=== PATIENT | male | born 1985 | race Caucasian/White ===

== ENCOUNTER 2021-09-23 18:57 | Inpatient (IN) | payer MEDICAID ==
[~2021-09-23] VITALS: Ht 170.2 cm; Wt 72.6 kg
--- NOTE | 2021-09-23 19:10 | NUR ---
Patient BIB [facility] from his trailer, for fentanyl/meth overdose, patient was given 4 mg Narcan nasally and 2 mg Narcan IV. Patient is spitting blood and states he can't breath.
--- NOTE | 2021-09-23 19:10 | NUR ---
Pt states his father, Flavio, cellphone number , and his girlfriend's cellphone .
--- NOTE | 2021-09-23 19:15 | NUR ---
RT at bedside.
--- NOTE | 2021-09-23 19:20 | NUR ---
Given 20 Etomidate
--- NOTE | 2021-09-23 19:21 | NUR ---
Given 100 succinylcholine
--- NOTE | 2021-09-23 19:25 | NUR ---
Pt intubated by Dr. Kee
[2021-09-23] MEDS ORDERED: PROPOFOL 100 ML ONE ×2 (19:26→23:31)
[2021-09-23] MEDS ORDERED: ETOMIDATE 20 MG/10 ML VIAL IV ONE (19:30)
[2021-09-23] MEDS ORDERED: SUCCINYLCHOLINE CHLORIDE 200 MG/10 ML VIAL IV ONE (19:30)
[2021-09-23] MEDS ORDERED: FUROSEMIDE 20 MG/2 ML VIAL IVP ONE (19:30)
--- NOTE | 2021-09-23 19:30 | NUR ---
Intubated 7.5 LL 23cm, hooked to MV with the settings of RR18, TV 550, PEEP 8, FIO2 100%. Addendum: 09/24/21 at 0007 by LYNN Intubated by EMILEE Kee.
[2021-09-23 19:56] LABS: CARBON DIOXIDE 26 mmol/L (21-32); CHLORIDE 101 mmol/L (98-107); CREATININE 1.4 mg/dL (0.6-1.3); POTASSIUM 3.6 mmol/L (3.5-5.1); UREA NITROGEN, BLOOD 12 mg/dL (7-18)
[2021-09-23 19:58] LABS: HEMATOCRIT 60.5 % (36.7-47.1); MEAN CORPUSCULAR HEMOGLOBIN 29.4 uug (23.8-33.4); MEAN CORPUSCULAR VOLUME 88.7 fL (73.0-96.2); PLATELET COUNT (AUTO) 186 K/uL (152-348)
[2021-09-23 20:03] LABS: GLUCOSE 302 mg/dL (74-106)
[2021-09-23 20:09] LABS: ALANINE AMINOTRANSFERASE 28 U/L (16-63); ALKALINE PHOSPHATASE 146 U/L (50-136); ASPARTATE AMINOTRANSFERASE 41 U/L (15-37); BILIRUBIN,DIRECT < 0.1 mg/dL (0.0-0.2); BILIRUBIN,TOTAL 0.6 mg/dL (0.2-1.0); TOTAL PROTEIN, SERUM 7.7 g/dL (6.4-8.2)
--- NOTE | 2021-09-23 20:20 | NUR ---
Urine sent to lab.
[2021-09-23] MEDS ORDERED: FUROSEMIDE 40 MG/4 ML VIAL ONE (20:27)
[2021-09-23 20:32] LABS: ABG BASE EXCESS -8.7 mmol/L; ABG HCO3 19.5 mmol/L; ABG PCO2 49.3 mmHg (35.0-45.0); ABG PH 7.214 (7.350-7.450); ABG PO2 75.5 mmHg (75.0-100.0); ABG SITE LEFT FEMORAL; ABG TOTAL HEMOGLOBIN 20.5 G/dL (13.5-18.0); COHb 0.3 % (0.5-1.5); MetHb 0.7 % (0.0-1.5); O2Hb 91.7 % (94.0-97.0); VENT MODE VENT - A/C; VT, ABG 550 mL
[2021-09-23] MEDS ORDERED: IV NS 1000 ML 1,000 ML IV ONE (20:45)
--- NOTE | 2021-09-23 20:55 | NUR ---
Called [facility] to page Aleena Parekh NP.
--- NOTE | 2021-09-23 21:00 | NUR ---
Covid and MRSA swab done and sent to lab.
[2021-09-23] MEDS ORDERED: PANTOPRAZOLE SODIUM IV 40 MG in IV DEXTROSE 5% 100 ML IV SCH (21:15)
[2021-09-23] MEDS ORDERED: ONDANSETRON 4 MG/2 ML VIAL IV PRN (21:15)
[2021-09-23] MEDS ORDERED: MAGNESIUM HYDROXIDE 30 ML LIQUID UDC PO PRN (21:15)
[2021-09-23] MEDS ORDERED: ACETAMINOPHEN 325 MG TABLET PO PRN (21:15)
[2021-09-23] MEDS: IV NS 1000 ML 1,000 ML IV PRN (21:24)
--- NOTE | 2021-09-23 21:30 | NUR ---
VIKTOR Parekh at bedside.
[2021-09-23] MEDS ORDERED: PANTOPRAZOLE SODIUM 40 MG VIAL ONE (21:47)
--- NOTE | 2021-09-23 21:57 | NUR ---
OG tube inserted c/o JAC Luis. Xray done c/o tech.
[2021-09-23] MEDS ORDERED: PIPERACILLIN SODIUM/TAZOBACTAM 3.375 G in IV DEXTROSE 5% 50 ML IV SCH (22:00)
--- NOTE | 2021-09-23 22:00 | NUR ---
Attempted to insert NGT but patient got extremely agitated, sat up in bed, trying to pull ETT. Propofol drip titrated for adequate sedation. OGT inserted instead; with small amounts of bloody drainage.
[2021-09-23] MEDS ORDERED: PIPERACILLIN/TAZOBACTAM/D5W 50 ML IV ONE (22:30)
[2021-09-23] MEDS: PIPERACILLIN SODIUM/TAZOBACTAM 3.375 G in IV DEXTROSE 5% 50 ML IV SCH (22:38)
[2021-09-23] MEDS: PROPOFOL 100 ML IV PRN ×2 (22:40→23:41)
[2021-09-23 23:00] VITALS: BP 87/47
[2021-09-23] MEDS: HEPARIN SODIUM,PORCINE 5,000 UNITS/ML VIAL SQ SCH (23:08)
[2021-09-23 23:15] VITALS: BP 80/52
[2021-09-23 23:30] VITALS: BP 86/55
[2021-09-23] MEDS ORDERED: PANTOPRAZOLE SODIUM 40 MG VIAL IV ONE (23:30)
[2021-09-23 23:45] VITALS: BP 88/52
[2021-09-24] VITALS (72 sets, daily range): BP systolic 76–153; BP diastolic 50–93
[2021-09-24] MEDS ORDERED: PHENYLEPHRINE 10 MG/1 ML VIAL ONE (00:09)
[2021-09-24] MEDS: IV NS 1000 ML 1,000 ML IV PRN (00:13)
[2021-09-24] MEDS: PHENYLEPHRINE IV 50 MG in IV NORMAL SALINE 245 ML IV PRN ×2 (00:14→00:17)
--- NOTE | 2021-09-24 00:17 | NUR ---
Hypotensive, BPs in the 70's systole. Neosynephrine drip started. Addendum: 09/24/21 at 0235 by MONICA MCFARLANE RN Amended: Links added.
--- NOTE | 2021-09-24 01:30 | NUR ---
Transferred to a hospital bed. Patient to stay in ER room as CCU patient due to staffing issue. Bath given. Skin care provided. Patient mildly agitated during transfer and care. Propofol drip remains at 50 mcg/kg/min.
[2021-09-24 02:07] LABS: HEMATOCRIT 54.8 % (36.7-47.1); MEAN CORPUSCULAR HEMOGLOBIN 29.2 uug (23.8-33.4); MEAN CORPUSCULAR VOLUME 87.5 fL (73.0-96.2); PLATELET COUNT (AUTO) 242 K/uL (152-348)
[2021-09-24 02:09] LABS: *AMPHETAMINE, URINE POSITIVE (NEGATIVE); *CANNABINOID, URINE NEGATIVE (NEGATIVE); *COCCAINE, URINE NEGATIVE (NEGATIVE); *OPIATE, URINE NEGATIVE (NEGATIVE); *PHENCYCLIDINE SCREEN,URINE NEGATIVE (NEGATIVE)
--- NOTE | 2021-09-24 02:30 | NUR ---
RT CALLED ABOUT 19:20 IN ER, PT ON MILLIE, ON 100% NRB MASK, SITTING UP, IN RESP. DISTRESS, HR 145, LABORED BREATHING, POOR OXYGENATION, PT THEN SEDATED AND INTUBATED BY DR RIGGINS, WITH 7.5 ET/TUBE IN PLACE LIP LINE 23CM,WITH ANCHOR FAST IN PLACE , PT WITH A LOT OF PUL. EDEMA FROTHY BLOODY TINGE SECRETIONS, CHANGE HME SEVERAL TIMES, SUCTION MOUTH, ALL VENT ALARMS GOD, WITH ABG DONE, REWULTS SHOWN TO ER DOCTOR, PT ON A/C 18, VT 550ML, 100%, PEEP8 Addendum: 09/24/21 at 0234 by BRITNI ROCK RT Amended: Links added. Addendum: 09/24/21 at 0236 by BRITNI ROCK RT PT WITH PUL. EDEMA, STILL CHANGE HME, AND LAVAGE WITH NS. CHECK Q2 HOURS; , ABG ORDER FOR 06:00. D SHWETA SONI
--- NOTE | 2021-09-24 03:01 | NUR ---
Spoke with Jose Eduardo Lindo NP re: troponin 257 with new orders to do troponin 6AM and cardio consult. Noted and carried out.
[2021-09-24] MEDS ORDERED: PROPOFOL 100 ML ONE ×2 (03:13→22:32)
[2021-09-24] MEDS: PROPOFOL 100 ML IV PRN ×7 (04:37→22:34)
[2021-09-24] MEDS: PIPERACILLIN SODIUM/TAZOBACTAM 3.375 G in IV DEXTROSE 5% 50 ML IV SCH (05:28)
[2021-09-24 06:06] LABS: *BILIRUBIN,URIN NEGATIVE (NEGATIVE); *BLOOD, URINE NEGATIVE (NEGATIVE); *COLOR,URINE YELLOW (YELLOW); *KETONES,URINE 1+ (NEGATIVE); *UROBILINOGEN,URINE 0.2 E.U./dl (NORMAL); LEUKOCYTE ESTERASE ,URINE NEGATIVE (NEGATIVE); NITRITE, URINE NEGATIVE (NEGATIVE); PH,URINE 7.5 (5.0-8.0); UGLUCOSE NEGATIVE (NEGATIVE)
[2021-09-24 06:08] LABS: ABG BASE EXCESS -4.2 mmol/L; ABG HCO3 22.2 mmol/L; ABG PCO2 45.4 mmHg (35.0-45.0); ABG PH 7.308 (7.350-7.450); ABG PO2 231.9 mmHg (75.0-100.0); ABG SITE LEFT FEMORAL; ABG TOTAL HEMOGLOBIN 18.3 G/dL (13.5-18.0); COHb 0.3 % (0.5-1.5); MetHb 0.3 % (0.0-1.5); O2Hb 98.7 % (94.0-97.0); VENT MODE VENT - A/C; VT, ABG 550 mL
[2021-09-24 06:11] LABS: *CLARITY,URINE HAZY (CLEAR)
--- NOTE | 2021-09-24 06:16 | NUR ---
Results of ABGs relayed to Jose Eduardo Lindo, informed of changes made by RT as per Dr. Kee. Okayed changes. FIO2 down to 70% and PEEP=5 cm.
[2021-09-24 06:18] LABS: BACTERIA,URINE NONE SEEN /HPF (NONE SEEN); RBC,URINE NONE SEEN /HPF (0-3); SQUAMOUS EPITHELIAL CELL,UR FEW /HPF (NONE SEEN); URINE AMORPHOUS PHOSPHATES MANY /HPF; WBC,URINE 0-3 /HPF (0-3)
[2021-09-24 06:20] LABS: PHOSPHOROUS 2.3 mg/dL (2.5-4.9)
--- NOTE | 2021-09-24 06:54 | NUR ---
Current vent settings: AC=18, FIO2=70%, PEEP= 5 cm and XG=323wb. O2 sats maintaining above 97%. Remains on Neosynephrine drip for BP support; titrated down to 0.8 mcg/kg/min and Propofol drip at 50 mcg/kg/min.
--- NOTE | 2021-09-24 07:00 | NUR ---
Received pt. on ventilator 7.,23LL A/C 18, tv 550, Peep +5 and 70% FIO2. no respiratory distress noted. saturation of 99% with oral care and small bloody sputum noted. afebrile. Cardiac-lobato on ST low upper 120's. sbp maintained above 90 neosinephrine running at 0.8mcg/kg/min = 18.66/hr. Neuro-lobato adequately sedated propofol running at 50mcg/kg/min, with gag&cough reflex present, SUZY. GI-lobato OG in place placement confirmed by auscultation. Hernandez to gravity with clear charla output. IV line present and patent infusing IVF. No skin break-down. Will continue with care plan.
[2021-09-24 07:16] LABS: HEMATOCRIT 52.5 % (36.7-47.1); MEAN CORPUSCULAR HEMOGLOBIN 29.3 uug (23.8-33.4); MEAN CORPUSCULAR VOLUME 88.1 fL (73.0-96.2); PLATELET COUNT (AUTO) 220 K/uL (152-348)
[2021-09-24 07:19] LABS: CREATININE 1.6 mg/dL (0.6-1.3); POTASSIUM 5.1 mmol/L (3.5-5.1)
[2021-09-24 07:22] LABS: MAGNESIUM 1.2 mg/dL (1.8-2.4)
[2021-09-24] MEDS ORDERED: PANTOPRAZOLE SODIUM 40 MG VIAL ONE (08:18)
[2021-09-24] MEDS ORDERED: HEPARIN SODIUM,PORCINE 5,000 UNITS/ML VIAL ONE ×2 (08:18→20:33)
[2021-09-24] MEDS: PANTOPRAZOLE SODIUM 40 MG VIAL IV SCH (08:21)
[2021-09-24] MEDS: VANCOMYCIN IV 1,250 MG in IV DEXTROSE 5% 250 ML IV SCH (08:21)
[2021-09-24] MEDS: HEPARIN SODIUM,PORCINE 5,000 UNITS/ML VIAL SQ SCH ×2 (08:22→20:37)
[2021-09-24] MEDS ORDERED: PHENYLEPHRINE IV 50 MG in IV NORMAL SALINE 245 ML IV PRN (08:30)
--- NOTE | 2021-09-24 08:47 | NUR ---
Patient seen by attending DNP. Iglesia Sexton report given.
[2021-09-24] MEDS ORDERED: ACETAMINOPHEN 325 MG TABLET ONE (10:19)
[2021-09-24] MEDS: MAGNESIUM SULFATE/D5W 100 ML IV SCH ×2 (10:23→12:03)
--- NOTE | 2021-09-24 10:29 | NUR ---
RT at bedside TV changed to 600 and FIO2 down to 50% as ordered by NAHEED Parekh.
[2021-09-24] MEDS ORDERED: IV NS 1000 ML 1,000 ML IV ONE (10:30)
--- NOTE | 2021-09-24 10:45 | NUR ---
Picc line Ju Gil in insertion in progress. At this time pt. became restless agitated slamming his hand agains bed and attempting to sit. As requested by MsUlysses Louise for adequate sedation during procedure propofol increased to 65mcg/kg/min/.
[2021-09-24] MEDS ORDERED: SUCCINYLCHOLINE CHLORIDE 200 MG/10 ML VIAL IV ONE (10:46)
[2021-09-24] MEDS ORDERED: ETOMIDATE 20 MG/10 ML VIAL IV ONE (10:46)
--- NOTE | 2021-09-24 11:10 | NUR ---
Procedure completed and chest Xray shot at this time patient adequately sedated. As per PICC line R.N. line ok to be used.
[2021-09-24] MEDS ORDERED: PROPOFOL 1,000 MG/100 ML BOTTLE ONE ×3 (13:05→18:49)
--- NOTE | 2021-09-24 13:06 | NUR ---
Patient seen by sports physical therapist Dr. Zelaya. Orders received and implemented.
[2021-09-24] MEDS ORDERED: FUROSEMIDE 20 MG/2 ML VIAL IV ONE (13:30)
[2021-09-24] MEDS: PIPERACILLIN SODIUM/TAZOBACTAM 3.375 G in IV DEXTROSE 5% 100 ML IV SCH ×2 (13:42→22:03)
[2021-09-24] MEDS ORDERED: FUROSEMIDE 20 MG/2 ML VIAL ONE (13:46)
--- NOTE | 2021-09-24 15:25 | NUR ---
Propofol running at 70 mcg/kg/min. neosynephrine running a 0.1mcg/min. patient noted to be in sinus tachycardia in the 113. pt. was preciously in low 100's. and noted to be more agitated especially when repositioned. orders received.
[2021-09-24] MEDS ORDERED: LORAZEPAM 2 MG/1 ML VIAL ONE ×2 (15:32→21:43)
[2021-09-24] MEDS: LORAZEPAM 2 MG/1 ML VIAL IV PRN ×2 (15:33→21:44)
[2021-09-24] MEDS ORDERED: SODIUM PHOSPHATE MM 15 MMOL in IV NORMAL SALINE 250 ML IV ONE (18:00)
--- NOTE | 2021-09-24 18:41 | NUR ---
Left pt. on Ventilator A/C 18, tv 600, Peep +5 and FIo2 50%. No respiratory distress saturation of 100%. Neuro-lobato adequately sedated with propofol running at 70mcg/kg/min Erika and withdrawing forcefully to light stimuli. Hemodynamically stable wean off neosynephrine and maintaining sbp above desired limits, with sinus tachycardia in the low 100's to 120"s afebrile. OG tube in place patent and clamped. No n/v/d. benjamin to gravity with adequate urine output. Picc line patent. No injury sustained safety measures implemented at all times. Will endorse for continuity of care.
[2021-09-24 19:25] LABS: BAND % (MANUAL) 5 % (0-10); LYMPHOCYTES % (MANUAL) 18 % (20-40); MONOCYTES % (MANUAL) 4 % (2-10); NEUTROPHILS % (MANUAL) 73 % (42-75)
--- NOTE | 2021-09-24 21:45 | NUR ---
Pt Father and at bedside with Dr Kee, updated family on pt conditon. Pt started to wake up and bucking up on the ventilator machine, safety precaution maintained. Ativan IV given.
[2021-09-25] VITALS (23 sets, daily range): BP systolic 105–146; BP diastolic 49–86
--- NOTE | 2021-09-25 00:29 | NUR ---
PATIENT ON CONT ROBERTSON VENT WITH 7.5 ET/TUBE IN PLACE AND SECURED WITH ANCHOR FAST Q2 RE POSITION TUBE, PT IS SEDATED AT TIMES WITH GOOD COUGH EFFORT, SLIGHT BLOODY TINGE SECRETIONS, CHANGE HME, ALL VENT ALARMS GOOD, PT WITH GOOD OXYGENATION, SAT 100%, NO VENT CHANGES MADE, AMBU BAG AT BEDSIDE, VENT PLUGGED IN TO RED WALL OUT, WILL MONITOR CLOSELY. Natalie ROCK RCP Addendum: 09/25/21 at 0032 by BRITNI FENTON Amended: Links added. Addendum: 09/25/21 at 0033 by BRITNI FENTON PATIENT ON CURRENT VENT SETTINGS, A/C 18, VT 600ML, FIO2 @ 50% , PEEP5 . Natalie ROCK RCP
[2021-09-25] MEDS ORDERED: PROPOFOL 100 ML ONE ×6 (01:57→21:24)
[2021-09-25] MEDS: PROPOFOL 100 ML IV PRN ×7 (01:58→21:25)
[2021-09-25] MEDS: VANCOMYCIN IV 1,250 MG in IV DEXTROSE 5% 250 ML IV SCH ×2 (02:00→13:00)
[2021-09-25] MEDS ORDERED: LORAZEPAM 2 MG/1 ML VIAL ONE ×3 (03:18→19:49)
[2021-09-25] MEDS: LORAZEPAM 2 MG/1 ML VIAL IV PRN ×3 (03:20→19:50)
--- NOTE | 2021-09-25 03:20 | NUR ---
Pt with periods of agitation, Propofol drip maintained. Ativan IV given, safety prec maintained.
--- NOTE | 2021-09-25 04:02 | NUR ---
Calm and relax at this time. VSS. Suctioned via ETT prn with minimal thick sanguinous secretions.
[2021-09-25 05:30] LABS: HEMATOCRIT 39.3 % (36.7-47.1); MEAN CORPUSCULAR VOLUME 85.5 fL (73.0-96.2); PLATELET COUNT (AUTO) 148 K/uL (152-348)
[2021-09-25 05:48] LABS: PHOSPHOROUS 2.3 mg/dL (2.5-4.9); POTASSIUM 3.3 mmol/L (3.5-5.1)
[2021-09-25] MEDS: PIPERACILLIN SODIUM/TAZOBACTAM 3.375 G in IV DEXTROSE 5% 100 ML IV SCH ×3 (06:00→22:01)
--- NOTE | 2021-09-25 06:45 | NUR ---
Called [facility] pulmonary service regarding new consult for Dr Fontenot, spoke to Dr Vega registration representative for this weekend and updated on pt conditon with orders received.
--- NOTE | 2021-09-25 07:00 | NUR ---
Received pt. on ventilator A/C 18 tv 600 FIO2 50. peep +5 Addendum: 09/25/21 at 0751 by MARLENA MONGE RN Adequately sedated on propofol running at 70mcg/kg/min. pt. withdrawing from light touch and with suctioning pt. in severe distress. OG-T placement confirmed via X-ray and auscultation. Cardiac-lobato in low sinus tachycardia, afebrile. benjamin to gravity. Will continue to monitor.
[2021-09-25 07:09] LABS: ABG BASE EXCESS 0.8 mmol/L; ABG HCO3 22.1 mmol/L; ABG PCO2 26.7 mmHg (35.0-45.0); ABG PH 7.536 (7.350-7.450); ABG PO2 178.4 mmHg (75.0-100.0); ABG SITE RIGHT RADIAL; ABG TOTAL HEMOGLOBIN 13.7 G/dL (13.5-18.0); COHb 0.3 % (0.5-1.5); MetHb 0.3 % (0.0-1.5); O2Hb 98.6 % (94.0-97.0); VENT MODE VENT - A/C; VT, ABG 600 mL
--- NOTE | 2021-09-25 07:38 | NUR ---
A call to pulmonary services and report given to Dr. Fernandez orders to decrease TV to 500 received and implemented.
--- NOTE | 2021-09-25 07:51 | NUR ---
Pulmonary services, Dr. Xavier in to follow up on pt. report given.
[2021-09-25] MEDS ORDERED: PANTOPRAZOLE SODIUM 40 MG VIAL ONE (07:55)
[2021-09-25] MEDS ORDERED: HEPARIN SODIUM,PORCINE 5,000 UNITS/ML VIAL ONE (07:55)
[2021-09-25] MEDS: PANTOPRAZOLE SODIUM 40 MG VIAL IV SCH (08:01)
--- NOTE | 2021-09-25 08:03 | NUR ---
With pillowcase cutter Dr. Xavier in the unit and after observing bloody frothy sputum orders to hold today's heparin dose received.
[2021-09-25] MEDS: HEPARIN SODIUM,PORCINE 5,000 UNITS/ML VIAL SQ SCH (08:04)
[2021-09-25] MEDS ORDERED: PROPOFOL 1,000 MG/100 ML BOTTLE ONE (08:14)
--- NOTE | 2021-09-25 09:43 | NUR ---
Patient seen by elementary education teacher Dr. Zelaya, report given.
[2021-09-25] MEDS ORDERED: PROPOFOL 1,000 MG/100 ML BOTTLE IV ONE (09:46)
--- NOTE | 2021-09-25 10:22 | NUR ---
Attending NAHEED Flood in the unit to see and examine pt. orders for dietary consult received and implemented.
[2021-09-25] MEDS ORDERED: FUROSEMIDE 20 MG/2 ML VIAL ONE ×2 (10:29→21:02)
[2021-09-25] MEDS: FUROSEMIDE 20 MG/2 ML VIAL IV SCH ×2 (10:31→21:03)
--- NOTE | 2021-09-25 11:19 | NUR ---
Pt's fiancee at bedside pt. becoming restless.
[2021-09-25] MEDS ORDERED: POTASSIUM CHLORIDE 100 ML ONE (13:15)
[2021-09-25] MEDS: POTASSIUM CHLORIDE 50 ML IV SCH ×2 (13:21→13:49)
[2021-09-25] MEDS ORDERED: POTASSIUM PHOSPHATE MM 15 MMOL in IV NORMAL SALINE 250 ML IV ONE (17:00)
--- NOTE | 2021-09-25 18:14 | NUR ---
Left patient on vent remains on same settings ETT 7.5, 23LL A/C 18, TV500, Peep +5, and FIO2 of 35%. No respiratory distress except when suctioning with moderate bloody output, and use accessory muscles and severe retraction noted each time, saturation 98-100. Remains on propofol on/off controlled restlessness. Ativan administered prn as ordered. Remains on Sinus tachycardia low 100's. OG-T remains clamped in satisfactory position. Hernandez to gravity with 2Liters clean charla output. PICC line 3L patent. No injury or pressure sore, safety measures implemented at all times. will endorse to incoming shift for continuity of care.
--- NOTE | 2021-09-25 20:30 | NUR ---
MRSA result for nares + received from Thao Joyner by Brendan HEBERT RN. Deandra Nursing cell operation supervisor made aware, waiting for available isolation room in ER. Edson LOERA made aware.
[2021-09-26] VITALS (24 sets, daily range): BP systolic 91–123; BP diastolic 46–85
[2021-09-26] MEDS ORDERED: PROPOFOL 100 ML ONE ×7 (00:47→22:57)
[2021-09-26] MEDS: PROPOFOL 100 ML IV PRN ×8 (01:01→23:30)
[2021-09-26] MEDS: VANCOMYCIN IV 1,250 MG in IV DEXTROSE 5% 250 ML IV SCH ×3 (01:56→21:12)
[2021-09-26] MEDS ORDERED: LORAZEPAM 2 MG/1 ML VIAL ONE ×4 (04:26→23:54)
[2021-09-26] MEDS: LORAZEPAM 2 MG/1 ML VIAL IV PRN ×4 (04:27→23:55)
--- NOTE | 2021-09-26 04:28 | NUR ---
Agitated post am care, safety precautioned maintained.
[2021-09-26 05:19] LABS: MAGNESIUM 1.7 mg/dL (1.8-2.4); PHOSPHOROUS 2.4 mg/dL (2.5-4.9); POTASSIUM 3.5 mmol/L (3.5-5.1)
[2021-09-26 05:23] LABS: HEMATOCRIT 37.4 % (36.7-47.1); MEAN CORPUSCULAR HEMOGLOBIN 29.5 uug (23.8-33.4); MEAN CORPUSCULAR VOLUME 85.7 fL (73.0-96.2); PLATELET COUNT (AUTO) 152 K/uL (152-348)
[2021-09-26] MEDS: PIPERACILLIN SODIUM/TAZOBACTAM 3.375 G in IV DEXTROSE 5% 100 ML IV SCH ×3 (05:34→21:37)
[2021-09-26] MEDS ORDERED: PANTOPRAZOLE SODIUM 40 MG VIAL ONE (07:50)
[2021-09-26] MEDS ORDERED: MUPIROCIN 2% OINT 22 GM TUBE ONE (07:51)
[2021-09-26] MEDS: MUPIROCIN 2% OINT 22 GM TUBE NS SCH ×2 (08:20→20:13)
[2021-09-26] MEDS: PANTOPRAZOLE SODIUM 40 MG VIAL IV SCH (08:20)
[2021-09-26] MEDS ORDERED: MAGNESIUM SULFATE/D5W 200 ML ONE (08:40)
[2021-09-26] MEDS: MAGNESIUM SULFATE/D5W 100 ML IV SCH ×2 (08:45→09:27)
--- NOTE | 2021-09-26 08:56 | NUR ---
Pt.was seen by Dr. Fontenot and with new orders.
[2021-09-26] MEDS ORDERED: POTASSIUM PHOSPHATE MM 15 MMOL in IV NORMAL SALINE 250 ML IV ONE (09:00)
--- NOTE | 2021-09-26 10:30 | NUR ---
Pt.was seen by REBECCA CUNNINGHAM DNP
[2021-09-26] MEDS: REMEDY ESSENTIAL ZINC PASTE 113 GM TP PRN (13:37)
--- NOTE | 2021-09-26 17:30 | NUR ---
Pt.family at bedside, was updated with pt.condition and plan of care.
--- NOTE | 2021-09-26 19:30 | NUR ---
Report received. Patient orally intubated and to mechanical ventilator settings: AC=14, FIO2=35%, GU=744 and PEEP=5 cm. Sedated, on continuous Propofol drip at 70 mcg/kg/min. whiskey proof reader: ANÍBAL RODRIGUES to low intermittent suction with green drainage. Assessment done. Addendum: 09/26/21 at 2342 by MONICA MCFARLANE RN Amended: Links added. Addendum: 09/26/21 at 2344 by MONICA MCFARLANE RN Amended: Links added. Addendum: 09/26/21 at 2344 by MONICA MCFARLANE RN Amended: Links added. Addendum: 09/26/21 at 2344 by MONICA MCFARLANE RN Amended: Links added. Addendum: 09/26/21 at 2344 by MONICA MCFARLANE RN Amended: Links added. Addendum: 09/26/21 at 2345 by MONICA MCFARLANE RN Amended: Links added. Addendum: 09/26/21 at 2345 by MONICA MCFARLANE RN Amended: Links added. Addendum: 09/26/21 at 2345 by MONICA MCFARLANE RN Amended: Links added. Addendum: 09/26/21 at 2346 by MONICA MCFARLANE RN Amended: Links added. Addendum: 09/26/21 at 2347 by MONICA MCFARLANE RN Amended: Links added. Addendum: 09/26/21 at 2347 by MONICA TAECHARATKIJ RN Amended: Links added. Addendum: 09/26/21 at 2347 by MONICA MCFARLANE RN Amended: Links added. Addendum: 09/26/21 at 2347 by MONICA MCFARLANE RN Amended: Links added. Addendum: 09/26/21 at 2348 by MONICA MCFARLANE RN Amended: Links added. Addendum: 09/26/21 at 2348 by MONICA MCFARLANE RN Amended: Links added. Addendum: 09/26/21 at 2348 by MONICA MCFARLANE RN Amended: Links added.
--- NOTE | 2021-09-26 20:08 | NUR ---
Extremely restless, Sits up in bed. Ativan 2 mg IV given.
[2021-09-27] VITALS (25 sets, daily range): BP systolic 88–125; BP diastolic 46–74
--- NOTE | 2021-09-27 | NUR ---
Transferred to [facility] with RT and continuous monitoring. VSS. Remains on Propofol drip at 70 mcg/kg/min.
--- NOTE | 2021-09-27 00:30 | NUR ---
Am care given, bathed, skin care provided. Patient still gets mildly agitated during care. Attempts to sit up in bed. Doesn't follow any commands.
[2021-09-27] MEDS: PROPOFOL 100 ML IV PRN ×6 (02:45→21:50)
--- NOTE | 2021-09-27 03:15 | NUR ---
Transferred back to ER room 1B as CCU patient. VS stable.
--- NOTE | 2021-09-27 04:00 | NUR ---
Diprivan drip titrated down. Patient is for CPAP this am. Will monitor closely.
[2021-09-27 04:50] LABS: HEMATOCRIT 33.4 % (36.7-47.1); MEAN CORPUSCULAR HEMOGLOBIN 29.5 uug (23.8-33.4); MEAN CORPUSCULAR VOLUME 85.5 fL (73.0-96.2); PLATELET COUNT (AUTO) 177 K/uL (152-348)
[2021-09-27 04:59] LABS: CREATININE 0.8 mg/dL (0.6-1.3); MAGNESIUM 2.2 mg/dL (1.8-2.4); PHOSPHOROUS 3.3 mg/dL (2.5-4.9); POTASSIUM 3.9 mmol/L (3.5-5.1)
--- NOTE | 2021-09-27 05:00 | NUR ---
Patient starting to get mildly agitated, tried to sit up in bed, attempting to reach for the ETT. Bilateral soft wrist restraints applied for safety. Patient doesn't open eyes to name or commands. Reoriented to place.
[2021-09-27] MEDS: PIPERACILLIN SODIUM/TAZOBACTAM 3.375 G in IV DEXTROSE 5% 100 ML IV SCH ×3 (05:06→21:05)
[2021-09-27] MEDS ORDERED: PROPOFOL 100 ML ONE ×4 (05:50→21:22)
--- NOTE | 2021-09-27 05:55 | NUR ---
RT Srini here. Patient placed on CPAP, PSV=8.
--- NOTE | 2021-09-27 06:10 | NUR ---
Patient tachypneic and tachycardic on CPAP. Still doesn't open eyes to name and directions. RR in the 30's. HR 104, ST. KN=186/74
--- NOTE | 2021-09-27 06:15 | NUR ---
Increasingly getting more agitated, grimacing. Still not following any commands. ABGs drawn by Srini FENTON. Patient monitored closely.
[2021-09-27 06:17] LABS: ABG HCO3 25.1 mmol/L; ABG PCO2 42.5 mmHg (35.0-45.0); ABG PH 7.389 (7.350-7.450); ABG PO2 128.8 mmHg (75.0-100.0); ABG SITE LEFT BRACHIAL; ABG TOTAL HEMOGLOBIN 12.3 G/dL (13.5-18.0); MetHb 0.3 % (0.0-1.5); O2Hb 98.2 % (94.0-97.0); VENT MODE CPAP
--- NOTE | 2021-09-27 06:35 | NUR ---
Call placed to Dr. Cabrera space control agent for Dr. Fontenot. Patient coughing, bucking the vent, tachypneic and mildly tachycardic. RT Srini called. Will place back on AC. Awaiting call back from Dr. Cabrera.
--- NOTE | 2021-09-27 06:40 | NUR ---
Pt placed back on A/C settings at this time. Pt was placed on CPAP settings for ABG at 0555.
[2021-09-27] MEDS ORDERED: LORAZEPAM 2 MG/1 ML VIAL ONE ×4 (06:42→21:00)
[2021-09-27] MEDS: LORAZEPAM 2 MG/1 ML VIAL IV PRN ×4 (06:45→21:05)
--- NOTE | 2021-09-27 07:08 | NUR ---
Seen by Dr. Zelaya. Report given.
--- NOTE | 2021-09-27 07:15 | NUR ---
Dr. Fontenot called back, informed of patient's condition. Patient still mildly to moderately agitated, coughing and continues to burrows the vent after IV Ativan. Suctioned for large amounts of thick bloody tinged secretions.
[2021-09-27] MEDS: VANCOMYCIN IV 1,250 MG in IV DEXTROSE 5% 250 ML IV SCH ×2 (08:02→17:11)
--- NOTE | 2021-09-27 08:04 | NUR ---
PT PLACED ON CONTINUOUS MECHANICAL VENTILATION. ORALLY INTUBATED WITH 7.5 ETT APPROX. 23 CM AT THE LIP LINE. NO CHANGES MADE AT THIS TIME. ORAL CARE DONE AND HME CHANGED NEEDED. ETT READJUSTED. VENT ALARMS CHECKED, ARE ON AND AUDIBLE. SUCTION SMALL AMOUNT OF THICK, YELLOW SECRETIONS. NO S/S OF RESPIRATORY DISTRESS NOTED. WILL CONTINUE TO MONITOR.
[2021-09-27] MEDS ORDERED: PANTOPRAZOLE SODIUM 40 MG VIAL ONE (08:09)
[2021-09-27] MEDS: PANTOPRAZOLE SODIUM 40 MG VIAL IV SCH (08:15)
[2021-09-27] MEDS: MUPIROCIN 2% OINT 22 GM TUBE NS SCH ×2 (08:19→20:02)
[2021-09-27] MEDS ORDERED: ENOXAPARIN SODIUM 40 MG/0.4 ML DISP.SYRIN SQ SCH (10:30)
[2021-09-27] MEDS ORDERED: PROPOFOL 1,000 MG/100 ML BOTTLE ONE (10:39)
[2021-09-27] MEDS ORDERED: JEVITY 1.2 1000 ML LIQUID GT PRN (10:45)
[2021-09-27] MEDS ORDERED: ENOXAPARIN SODIUM 40 MG/0.4 ML DISP.SYRIN SQ ONE (10:51)
[2021-09-27] MEDS ORDERED: MORPHINE SULFATE 2 MG/1 ML DISP.SYRIN ONE ×3 (16:05→19:00)
[2021-09-27] MEDS: MORPHINE SULFATE 2 MG/1 ML DISP.SYRIN IV PRN ×2 (16:10→19:02)
--- NOTE | 2021-09-27 19:30 | NUR ---
CHECKED TEMP DONE ORALLY TEMP .99.3 F . ETT - VENTD AC 14/500/30% /PEEP 5, SUCTION VIA ETT MINIMAL ,ORALLY MODERATED WHITISH THIN TO THICK SECRETIONS . MODERATELY SEDATED WHEN SUCTION NOTED FACIAL GRIMACING AND + GAG + COUGH . MOVED HEAD FROM SIDE TO SIDE . TF IN PROGRESS VIA OGT -JEVITY AT 10 ML/HR , CHECKED RESIDUAL ONLY 20 ML , INCREASE TF TO 30 ML/HR GOAL IS 40 ML/HR X22 HOURS . HOB UP AND ASPIRATION PRECAUTION OBSERVED . HURST CATHETER TO BSD WITH GREENISH COLORED URINE .
--- NOTE | 2021-09-27 20:00 | NUR ---
TURNED AND REPOSITION PATIENT .OFFLOADED BACK WITH PILLOW AND BILATERAL HEELS OFF BED . SCDS USED AND ON [employer] BED .
--- NOTE | 2021-09-27 21:05 | NUR ---
PATIENT WITH FACIAL GRIMACING NOTED . STARTED TO GET RESTLESS AND MOVED UPPER AND LOWER EXTREMITIES .PATIENT ON BILATERAL SOFT WRIST RESTRAINTS CONTINUE AND FOLLOW RESTRAINTS PROTOCOL .PRN OF AGITATION GIVEN -ATIVAN .
--- NOTE | 2021-09-27 21:14 | NUR ---
DUE ANTIBIOTIC ZOSYN GIVEN .SCAN MEDICATION .
--- NOTE | 2021-09-27 22:30 | NUR ---
SUCTION PATIENT WITH MODERATE SECREATION VIA THE ETT AND AROUND THE MOUTH .
[2021-09-28] VITALS (24 sets, daily range): BP systolic 91–166; BP diastolic 43–88
[2021-09-28] MEDS ORDERED: MORPHINE SULFATE 2 MG/1 ML DISP.SYRIN ONE ×5 (00:12→22:06)
[2021-09-28] MEDS: MORPHINE SULFATE 2 MG/1 ML DISP.SYRIN IV PRN ×5 (00:13→22:07)
--- NOTE | 2021-09-28 00:13 | NUR ---
PATIENT NOTED GETTING RESTLESS AND RIGHT HAND MOVING REACHING FOR THE ETT TUBE , UNABLE TO FOLLOW COMMANDS . GIVEN PRN MORPHINE AND INSREASE PROPOFOL TO 70 MCG/KG/MIN .
[2021-09-28] MEDS ORDERED: LORAZEPAM 2 MG/1 ML VIAL ONE ×5 (01:27→20:17)
[2021-09-28] MEDS ORDERED: PROPOFOL 100 ML ONE ×2 (01:27→04:38)
[2021-09-28] MEDS: PROPOFOL 100 ML IV PRN ×2 (01:29→04:40)
[2021-09-28] MEDS: LORAZEPAM 2 MG/1 ML VIAL IV PRN ×5 (01:29→20:19)
--- NOTE | 2021-09-28 04:00 | NUR ---
AM CARE DONE ,BATH PATIENT CHANGED SOILED LINENS AND GOWN, HURST CARE DONE ,APPLIED Z GUARD TO SACRAL AND BILATERAL GROIN AREA . ORAL CARE DONE . SUCTION VIA ETT AND VIA MOUTH .
[2021-09-28] MEDS: VANCOMYCIN IV 1,250 MG in IV DEXTROSE 5% 250 ML IV SCH ×3 (04:12→23:16)
[2021-09-28 04:46] LABS: HEMATOCRIT 31.2 % (36.7-47.1); MEAN CORPUSCULAR HEMOGLOBIN 29.7 uug (23.8-33.4); MEAN CORPUSCULAR VOLUME 86.1 fL (73.0-96.2); PLATELET COUNT (AUTO) 212 K/uL (152-348)
[2021-09-28 04:57] LABS: CREATININE 0.7 mg/dL (0.6-1.3); PHOSPHOROUS 3.6 mg/dL (2.5-4.9)
[2021-09-28] MEDS: PIPERACILLIN SODIUM/TAZOBACTAM 3.375 G in IV DEXTROSE 5% 100 ML IV SCH ×3 (05:08→21:09)
--- NOTE | 2021-09-28 06:00 | NUR ---
RESPIRATORY THERAPIST AT B/S FOR CPAP PSV 8 .TO KEEP SPO2 >94%.SUCTION VIA ETT AND VIA MOUTH , PROPOFOL DECREASE TO 35 MCG/KG/MIN .CONTINUE TO MONITOR V/S .
[2021-09-28 06:14] LABS: ABG HCO3 27.4 mmol/L; ABG PCO2 41.2 mmHg (35.0-45.0); ABG PO2 116.7 mmHg (75.0-100.0); ABG SITE LEFT BRACHIAL; COHb 0.3 % (0.5-1.5); MetHb 0.1 % (0.0-1.5); VENT MODE CPAP PS 8
--- NOTE | 2021-09-28 06:14 | NUR ---
ABG DONE BY RESPIRATORY THERAPIST . ON CPAP
[2021-09-28] MEDS: REMEDY ESSENTIAL ZINC PASTE 113 GM TP PRN ×2 (06:19→21:56)
--- NOTE | 2021-09-28 06:26 | NUR ---
PATIENT TRYING TO REACH FOR THE ETT ,REORIENTATION DONE ADVISED PATIENT TO RELAX AND TO CONCENTRATE WITH HIS BREATHING INFORMED PATIENT WE ARE DOING WEANING PROTOCOL AND IF HE PASSED WE MIGHT BE ABLE TO BE EXTUBATED .PATIENT GALI CALLED AND NOTIFIED THAT WE ARE DOING WEANING AND CPAP TRAILS .
--- NOTE | 2021-09-28 06:28 | NUR ---
PATIENT GETS MORE RESTLESS /AGITATED DOESN'T NOT FOLLOW COMMANDS .GIVEN ATIVAN PRN .SEE EMAR .
--- NOTE | 2021-09-28 07:00 | NUR ---
Received pt on ventilator CPAP since 0600 today. mode PSV 8. on propofol 35mcg/kg/min. patient noted to be slightly restless and agitated not following commands on BUE soft restrains. OG in place clamped at this time for aspiration precautions. ABG results in. Cardiac-lobato pt. on low sinus tachycardia with sbp been maintained without the need of vasopressors. Hernandez to gravity. Picc line in place. No skin breakdown.
--- NOTE | 2021-09-28 07:31 | NUR ---
A call to pulmonary services to report ABG. results. as stated on his way and will be here within 5min.
--- NOTE | 2021-09-28 07:40 | NUR ---
Dr. Fontenot in the unit bedside report given and orders to redraw ABG received and implemented.
[2021-09-28 08:14] LABS: ABG BASE EXCESS 4.3 mmol/L; ABG HCO3 28.9 mmol/L; ABG PCO2 43.1 mmHg (35.0-45.0); ABG PH 7.444 (7.350-7.450); ABG SITE RIGHT RADIAL; ABG TOTAL HEMOGLOBIN 12.7 G/dL (13.5-18.0); COHb 0.3 % (0.5-1.5); MetHb 0.1 % (0.0-1.5); O2Hb 94.3 % (94.0-97.0); VENT MODE CPAP - PS 8
--- NOTE | 2021-09-28 08:18 | NUR ---
Dr. Fontenot called and 2nd ABG result report given at this time orders to proceed to extubate pt. received.
[2021-09-28] MEDS ORDERED: PANTOPRAZOLE SODIUM 40 MG VIAL ONE (08:24)
[2021-09-28] MEDS: PANTOPRAZOLE SODIUM 40 MG VIAL IV SCH (08:27)
[2021-09-28] MEDS: MUPIROCIN 2% OINT 22 GM TUBE NS SCH ×2 (08:28→20:20)
[2021-09-28] MEDS ORDERED: ALBUTEROL SULFATE 2.5 MG/3 ML NEBU NEB PRN (08:30)
[2021-09-28] MEDS ORDERED: DC PROPOFOL ONCE EXTUBATED XX PRN (08:30)
--- NOTE | 2021-09-28 08:35 | NUR ---
At this time pt. extubated as ordered by electrical appliance repairer. placed on face mask 6 liter. patient remains restless and agitated.
--- NOTE | 2021-09-28 08:45 | NUR ---
Saturation within desired limits and pt. placed on NC 2liter saturation of 98% sbp of 125/71 hr. of 105. will continue to monitor.
--- NOTE | 2021-09-28 09:51 | NUR ---
Attending Dr. Turcios at bedside report given at this time DrUlysses witness pt's restless agitated and aggressive behavior. orders received.
[2021-09-28] MEDS ORDERED: HALOPERIDOL LACTATE 5 MG/1 ML VIAL ONE ×2 (10:06→19:15)
[2021-09-28] MEDS ORDERED: diphenhydrAMINE 50 MG/1 ML VIAL ONE (10:06)
[2021-09-28] MEDS: HALOPERIDOL LACTATE 5 MG/1 ML VIAL IM PRN ×2 (10:10→19:17)
[2021-09-28] MEDS ORDERED: diphenhydrAMINE 50 MG/1 ML VIAL IV PRN (10:15)
--- NOTE | 2021-09-28 10:27 | NUR ---
Patient remains restless agitated attempting to get out of bed. Restrains on HR of 113, sbp 115/45 rr 16. saturation of 98%.
--- NOTE | 2021-09-28 14:24 | NUR ---
Patient remains with episodes of restlessness agitation. Patient noted to be hallucinating on/off. attempting to get get out of bed unsupervised, attempting to bite restrains, and not following commands.
--- NOTE | 2021-09-28 18:51 | NUR ---
Left pt. in bed resting at this moment on/off combative pulling off restrains spitting at staff, restlessness and multiple attempts to get off bed unsupervised. On BUE acute medical restrains due to attempts to self harm and removal of iv lines. Cardica-lobato on/off sinus rhythm/sinus tachycardia in the low 100"'s. Patient afebrile during shift. benjamin to gravity with adequate greenish output. PICC line patent. No injury sustained. Will endorse for continuity of care plan.
--- NOTE | 2021-09-28 19:30 | NUR ---
PATIENT IN BED ON AND OFF RESTLESS AND TRYING TO GET OOB . PATIENT OPEN EYES AND MOVED ALL EXTREMITIES .DOESN'T FOLLOW COMMANDS . SOFT BILATERAL WRIST RESTRAINTS IMPLEMENTED AND USED FOR PATIENT SAFETY FOLLOW SOFT WRIST RESTRAINT PROTOCOL AT TIMES PATIENT NOTED SPITTING AT STAFF . CONSTANT REORIENTATION DONE AND REPOSITIONINGS DONE .
--- NOTE | 2021-09-28 20:00 | NUR ---
ON ROOM AIR TOLERATING ROOM AIR SATURATION 97% ,NO S/S/ OF RESPIRATORY DISTRESS NOTED ,BREATHING EVEN AND UNLABORED . HOB UP . KEPT NPO FOR SWALLOW EVALUATION IN AM . HURST CATHETER TO BSD WITH GREENISH YELLOWISH URINE .
--- NOTE | 2021-09-28 21:43 | NUR ---
PATIENT COUGHING SUCTION PATIENT USING YANKAUER ,WITH THIN TO THICK SECRETIONS WHITISH TO SMITH IN COLOR . .
[2021-09-29] VITALS (23 sets, daily range): BP systolic 105–145; BP diastolic 58–87
--- NOTE | 2021-09-29 | NUR ---
SLEEPING IN BED , V/S WNL NO RESPIRATORY DISTRESS .
[2021-09-29] MEDS: MORPHINE SULFATE 2 MG/1 ML DISP.SYRIN IV PRN (01:27)
--- NOTE | 2021-09-29 02:00 | NUR ---
NO S/S PAIN SLEEPING .TOLERATING ROOM AIR SATURATION 100% RR 18
[2021-09-29] MEDS ORDERED: LORAZEPAM 2 MG/1 ML VIAL ONE (02:06)
[2021-09-29] MEDS: LORAZEPAM 2 MG/1 ML VIAL IV PRN (02:10)
[2021-09-29 04:56] LABS: HEMATOCRIT 35.6 % (36.7-47.1); MEAN CORPUSCULAR HEMOGLOBIN 29.6 uug (23.8-33.4); MEAN CORPUSCULAR VOLUME 85.7 fL (73.0-96.2); PLATELET COUNT (AUTO) 281 K/uL (152-348)
[2021-09-29 05:08] LABS: CREATININE 0.7 mg/dL (0.6-1.3); MAGNESIUM 1.9 mg/dL (1.8-2.4); PHOSPHOROUS 3.4 mg/dL (2.5-4.9); POTASSIUM 3.7 mmol/L (3.5-5.1)
[2021-09-29] MEDS: HALOPERIDOL LACTATE 5 MG/1 ML VIAL IM PRN (05:36)
[2021-09-29] MEDS: PIPERACILLIN SODIUM/TAZOBACTAM 3.375 G in IV DEXTROSE 5% 100 ML IV SCH (05:38)
--- NOTE | 2021-09-29 06:00 | NUR ---
AM CARE DONE ,BATH PATIENT CHANGED SOILED LINENS AND GOWN .HURST CARE DONE . ORAL CARE DONE . TURNED AND REPOSITION PATIENT OFFLOADED BACK WITH PILLOWS AND HEELS OFF BED . SCD USED.
--- NOTE | 2021-09-29 07:30 | NUR ---
SPEECH THERAPIST UNABLE TO TEST SWALLOWING AT THIS TIME PATIENT IS DIFFICULT TO AROUSE OR MAINTAIN ATTENTION AND IS UNABLE TO FOLLOW COMMANDS
--- NOTE | 2021-09-29 07:40 | NUR ---
DR CURIEL ROUNDING ON PATIENT
[2021-09-29 07:54] LABS: ABG BASE EXCESS -1.1 mmol/L; ABG HCO3 22.4 mmol/L; ABG PCO2 33.7 mmHg (35.0-45.0); ABG PO2 82.7 mmHg (75.0-100.0); ABG SITE RIGHT RADIAL; ABG TOTAL HEMOGLOBIN 13.3 G/dL (13.5-18.0); COHb 0.7 % (0.5-1.5); MetHb 0.3 % (0.0-1.5); O2Hb 95.4 % (94.0-97.0)
[2021-09-29] MEDS: MUPIROCIN 2% OINT 22 GM TUBE NS SCH ×2 (08:28→21:01)
[2021-09-29] MEDS: PANTOPRAZOLE SODIUM 40 MG VIAL IV SCH (08:28)
--- NOTE | 2021-09-29 09:00 | NUR ---
DR. SAPP IN THE UNIT TO SEE PATIENT. PATIENT CAN ANSWER SOME QUESTIONS WITH SOME DIFFICULTY TO AROUSE. WILL WEAN DOWN ON PRN MEDS FOR TODAY IF PATIENT IS MORE COOPERATIVE AND CAN FOLLOW COMMANDS.
[2021-09-29] MEDS: GUAIFENESIN LA 600 MG TABLET.SA PO SCH ×2 (10:29→21:00)
[2021-09-29] MEDS: AMOXICILLIN-CLAVUL 875-125MG TABLET PO SCH ×2 (10:29→21:00)
--- NOTE | 2021-09-29 11:04 | NUR ---
Spoke to Dr. Turcios swallow eval to continue today once available, patient is wake following commands is able to swallow ice chips. Follow diet recommendations once swallow eval is done. Also informed that patient states that he wants to go home.
--- NOTE | 2021-09-29 11:52 | NUR ---
speech therapy unable to clear him for regular feeding/ meals patient needs to be awake longer period of time. patient continues to doze off during evaluation requires repeated stimulation.
--- NOTE | 2021-09-29 19:10 | NUR ---
DAY SHIFT RN LISANDRO AT B/S DOING PM CARE ,BATH PATIENT ABLE TO HELP IN TURNING BUT STILL VERY WEAK UPPER AND LOWER EXTREMITIES . HURST CARE DONE . ORAL CARE DONE .
--- NOTE | 2021-09-29 20:30 | NUR ---
PROVIDED PHONE AT B/S REQUESTED BY PATIENT ASSISTED WITH PHONE CALLS PATIENT CALLED HIS FATHER AND HIS FIANCE.
--- NOTE | 2021-09-29 20:45 | NUR ---
PATIENT CALLED AND ASKED FOR WATER ,ASSISTED TOLERATED SIPS OF WATER.
--- NOTE | 2021-09-29 21:00 | NUR ---
PATIENT TOLERATED PO MEDICATION TOOK MEDICATION WITH WATER AND TOLERATED 1 CUP OF ORANGE FLAVORED JELLO .
[2021-09-30] VITALS (13 sets, daily range): BP systolic 95–141; BP diastolic 53–87
--- NOTE | 2021-09-30 01:00 | NUR ---
PATIENT SLEEPING IN BED ,ABLE TO TURNED AND REPOSITION SELF ,V/S WNL ,NO RESPIRATORY DISTRESS NOTED .
--- NOTE | 2021-09-30 05:10 | NUR ---
PATIENT CALLED AND REQUESTED JELLO ,GIVEN JELLO AND ICE CREAM .
[2021-09-30] MEDS: GUAIFENESIN LA 600 MG TABLET.SA PO SCH (08:08)
[2021-09-30] MEDS: PANTOPRAZOLE SODIUM 40 MG VIAL IV SCH (08:08)
[2021-09-30] MEDS: AMOXICILLIN-CLAVUL 875-125MG TABLET PO SCH (08:09)
[2021-09-30] MEDS: MUPIROCIN 2% OINT 22 GM TUBE NS SCH (08:13)
[2021-09-30 08:25] LABS: MEAN CORPUSCULAR HEMOGLOBIN 29.6 uug (23.8-33.4); MEAN CORPUSCULAR VOLUME 84.7 fL (73.0-96.2); PLATELET COUNT (AUTO) 356 K/uL (152-348)
[2021-09-30 08:35] LABS: CREATININE 0.8 mg/dL (0.6-1.3); MAGNESIUM 1.9 mg/dL (1.8-2.4); PHOSPHOROUS 3.1 mg/dL (2.5-4.9); POTASSIUM 3.6 mmol/L (3.5-5.1)
--- NOTE | 2021-09-30 10:00 | NUR ---
Hernandez catheter removed. Patient in diaper, unsteady upon standing. Awaiting PT recommendations. Mother took belongings home and signed for everything.
--- NOTE | 2021-09-30 15:32 | NUR ---
Patient left against medical advice. Risks were explained to the patient including worsening of condition/ illness. Benefits of continuing hospital stay were explained to the patient. Patient states that we can't hold him against here against his will. PICC line removed. Belongings brought with patient. Dr Turcios informed. Patient escorted out of the facility.
[2021-10-01] MEDS ORDERED: PANTOPRAZOLE SODIUM 40 MG TABLET.DR PO SCH (07:00)
== END 2021-09-30 15:00 | disposition left against medical advice (07) | DRG 812 ==
LOC: ER 18:59 → OBSER 21:16 → UNDOADMIN 21:16 → CCU 09-25 23:26 → TELE-TD3 09-30 11:50
PROVIDERS: ADMIT Nurse Practitioner Acute Care; ATTEND Internal Medicine
PROC: 0BH17EZ Insertion of Endotracheal Airway into Trachea, Via Natural or Artificial Opening (ICD-10-PCS; principal; 2021-09-23)
PROC: 5A1955Z Respiratory Ventilation, Greater than 96 Consecutive Hours (ICD-10-PCS; principal; 2021-09-23)
PROC: B548ZZA Ultrasonography of Superior Vena Cava, Guidance (ICD-10-PCS; 2021-09-24)
PROC: 02HV33Z Insertion of Infusion Device into Superior Vena Cava, Percutaneous Approach (ICD-10-PCS; 2021-09-24)
DX: T40.411A Poisoning by fentanyl or fentanyl analogs, accidental (unintentional), initial encounter (principal); N17.0 Acute kidney failure with tubular necrosis; R65.21 Severe sepsis with septic shock; J69.0 Pneumonitis due to inhalation of food and vomit; G92.8 Other toxic encephalopathy; A41.9 Sepsis, unspecified organism; J96.02 Acute respiratory failure with hypercapnia; J96.01 Acute respiratory failure with hypoxia; R04.89 Hemorrhage from other sites in respiratory passages; E87.2 Acidosis; D69.6 Thrombocytopenia, unspecified; T43.621A Poisoning by amphetamines, accidental (unintentional), initial encounter; I21.A1 Myocardial infarction type 2; J70.2 Acute drug-induced interstitial lung disorders; T50.7X5A Adverse effect of analeptics and opioid receptor antagonists, initial encounter; Y92.89 Other specified places as the place of occurrence of the external cause; D64.9 Anemia, unspecified; E83.42 Hypomagnesemia; F19.10 Other psychoactive substance abuse, uncomplicated; Z59.00 Homelessness unspecified; J70.4 Drug-induced interstitial lung disorders, unspecified
CPT/HCPCS: 36415; 36569; 36600; 70030-TC; 71045; 83605; 83735; 84100; 84484; 85025; 87070; 87086; 93005; 93307; 94002; 94003; 97161; A4663; C9113; G0378; J0330; J1200; J1630; J1644; J1650; J1940; J2060; J2270; J2370; J2543; J3475; J3480; J3490; J7040; J7050